=== PATIENT | female | born 1945 | race Caucasian/White ===

== ENCOUNTER → 2022-06-29 13:13 | Outpatient (BNVA) | payer MEDICARE, SELFPAY | PROVIDERS: PCP Internal Medicine; Visit Provider Hospitalist | DX: R91.8 Other nonspecific abnormal finding of lung field (principal); R10.9 Unspecified abdominal pain; R16.1 Splenomegaly, not elsewhere classified; R05.3 Chronic cough | CPT/HCPCS: 99202 ==

== ENCOUNTER 2023-04-26 08:30 | Outpatient (REF) | payer MEDICARE, SELFPAY ==
--- NOTE | ~2023-04-26 | CT_ITS ---
EXAMINATION: CT CHEST WITHOUT CONTRAST CLINICAL INFORMATION: Nonspecific abnormal finding lung field. COMPARISON: None available. TECHNIQUE: Multidetector volumetric CT imaging of the chest was done. Axial MIP volume rendering provided. Sagittal and coronal reformatted images were obtained. This CT examination was performed using dose optimization techniques as appropriate, variously including the following: *Automated exposure control *Adjustment of mA and/or kV according to patient size (this includes techniques or standardized protocols for targeted exams where dose is matched to indication/reason for exam; i.e. extremities or head) *Use of iterative reconstruction technique DLP: 66 mGy-cm FINDINGS: CITY MANAGER: Hyperinflated lungs. Mild kyphosis. LUNGS: Evaluation of the trachea limited due to motion artifact. Trachea and bronchi are patent. Hyperinflation with mild centrilobular emphysema. Mild bilateral lower lobe and lingular atelectasis. Right middle lobe granuloma. No consolidations, groundglass opacities versus lung nodules. MEDIASTINUM: Unremarkable thyroid. No pathologic lymphadenopathy. Nonenlarged heart. No pericardial effusion. Nonaneurysmal aorta with atherosclerotic calcifications. Nonenlarged pulmonary arteries. CORONARY ARTERY CALCIFICATION: Mild. PLEURA: There is no pleural effusion. No pleural mass or thickening. AXILLA: No lymphadenopathy. UPPER ABDOMEN: Unremarkable. OSSEOUS STRUCTURES: Kyphosis. CT/CT chest wo IV con IMPRESSION: Mild centrilobular emphysema and mild scattered atelectasis. No acute intrathoracic or upper abdominal pathology. Fleischner guidelines were followed.
== END 2023-04-26 08:31 | disposition home or self-care (01) ==
LOC: HO.CT 08:30
PROVIDERS: PCP Internal Medicine; Visit Provider Hospitalist
DX: R91.8 Other nonspecific abnormal finding of lung field (principal)
CPT/HCPCS: 71250

== ENCOUNTER 2023-05-14 10:22 | Outpatient (AMB) | payer MEDICARE, SELFPAY ==
[2023-05-14 10:35] VITALS: BP 124/70; PULSE 82; O2SAT 99; BMI 18.7
--- NOTE | 2023-05-14 10:35 | A.OFFVIS_ITS ---
Intake Vital Signs 05/14/23 10:35 Height 5 ft Weight 96 lb BMI 18.7 BP 124/70 Blood Pressure Location Rt brachial Position Sitting Pulse 82 Pulse Source Pulse Oximeter Pulse Oximetry (%) 99 Oxygen Delivery Method Room Air Intake Visit Reasons: COPD Allergies acetaminophen [From Tylenol] Allergy (Severe, Verified 05/14/23 10:38) Hallucinations meperidine [From Demerol] Allergy (Severe, Verified 05/14/23 10:38) Difficulty Breathing oxycodone Allergy (Severe, Verified 05/14/23 10:38) Hallucinations Penicillins Allergy (Severe, Verified 05/14/23 10:38) Hives HPI HPI Comments History of Present Illness Details The patient is a 77 year woman with a known history of vocal cord dysfunction. Part of workup including a CT scan of the chest. She had a CT scan back in April 2022. This was done at [facility]. I personally reviewed the report closely with the patient. It did mention that she had 2 new pulmonary nodules when compared to 2012. One of the nodules is only 3 mm in size in the right upper lobe and is ground glassy in nature. The largest nodule measures 6 mm and is in the right lower lobe. This nodule is also described as ground glassy. Does not appear to have a solid component which is reassuring the patient also has some evidence of mild lymphadenopathy primarily in the hilum and also some coronary vascular calcifications. Based on the abnormal findings she was referred to Pulmonary. On further questioning the patient states that she was followed by ENT for many years for the vocal cord dysfunction. Sometimes she would lose her voice altogether. She did work closely with speech pathology and now has been discharged. She continues to work on the exercises by herself. She has does know exactly why she lost her voice. The patient does complaint of a dry cough. The cough tends to be worse when she lays flat. Moderate severity. Nonproductive in nature. Denies any chest tightness or wheezing. She does complaint of nasal congestion postnasal drip. Therefore will go ahead and treated for a upper airway cough syndrome. In addition to this the patient does complaint of left upper quadrant pain. When she takes deep breath it tends to hurt more. She is on comfortable and she is concerned about what it could be. She is wondering if it could be her lungs or if it is related to her chronic pancreatic disease. On my examination I could palpate an organ in the left upper lobe quadrant suggesting splenomegaly. Will go ahead and request an ultrasound to assess that area further. She does have a GI doctor that she also follows up closely with specially with her pancreatic insufficiency. 05/14/2023 the patient is here for a pul monary follow-up visit. The patient overall has been doing well. She still complains of a dry persistent cough. Moderate severity. She does take an Jose inhibitor but she is taking that for many years. She did not have any significant improvement after the addition of nasal therapy. We did review her CT scan of the chest. No significant abnormalities. She has small subcentimeter pulmonary nodules that have not changed. Was mention some emphysema but I do not appreciate significant emphysema at this time. She is hyperinflated she does have some lordosis is some back issues. Therefore, will go ahead and start her on benzonatate for cough. This started not covered she can try good Rx card. If she finds it helpful will have to find a way for her to get them at a reasonable cost. She the other option is to get off the JOSE-inhibitor but the patient is very comfortable taking this medication that is worse for her for many years, the room social although not changed [facility], [facility] Medical History (Updated 06/29/22 @ 18:40 by Uri Polk MD) Chronic cough Pulmonary nodules Abdominal pain (Updated 06/29/22 @ 13:27 by Nikki Templeton Kane) Patient Tobacco Use Status: Former Tobacco user Tobacco use type: Cigarette Years Smoked: 10 Years Review of Systems Const Denies excessive sweating and Denies fever(s) Eyes Denies change in vision ENT Reports change in voice, Reports nasal congestion, Reports nasal discharge and Reports post nasal drip Card Denies chest pain and Denies dyspnea on exertion Resp Denies chest congestion, Reports cough, Denies dyspnea on exertion and Denies wheezing GI Reports abdominal pain and Reports dyspepsia Musc Reports myalgias Skin/Breast Denies rash Neuro Reports no additional complaints Endo Denies excessive sweating Dagoberto/Lymph Reports easy bruising Aller/Immun Denies wheezing Physical Exam Vital Signs: Last Vital Signs Pulse 82 05/14/23 10:35 BP 124/70 05/14/23 10:35 Pulse Ox 99 05/14/23 10:35 Oxygen Delivery Method Room Air 05/14/23 10:35 BMI result Body Mass Index 18.7 Const General: comfortable HEENT General nose exam: Abnormal mucous membranes and turbinates present boggy Throat: Yes postnasal drainage Eyes General: appearance normal, both eyes and all related structures Neck Neck: Yes supple Chest Chest palpation & inspection: normal inspection of the chest Resp Effort & Inspection: normal respiratory effort Auscultation: clear to auscultation bilaterally Cardio Rate: regular rate Rhythm: regular rhythm Heart sounds: S1 normal heart sound present and S2 normal heart sound present GI Palpation (GI): Tenderness to palpation present (GI) in the LUQ and Splenomegaly present Auscultation: normal bowel sounds General: Yes no CVA tenderness Back/Spine/Pelvis Back: no CVA tenderness Skin General skin exam: no rashes or lesions noted Extrem General: Yes no clubbing, cyanosis or edema Results Reviewed Results Reviewed: [address] [address] [address] Scan Report Signed Patient: Yoly Hopkins MR#: [id number] : 1945 Acct:[id number] Age/Sex: 77 / F ADM Date: 04/26/23 Loc: HO.CT Attending Dr: Uri Polk MD Ordering Physician: Uri Polk MD Date of Service: 04/26/23 Procedure(s): CT chest wo IV con Accession Number(s): [id number] cc: Rhett Zepeda; Uri Polk MD~ EXAMINATION: CT CHEST WITHOUT CONTRAST CLINICAL INFORMATION: Nonspecific abnormal finding lung field. COMPARISON: None available. TECHNIQUE: Multidetector volumetric CT imaging of the chest was done. Axial MIP volume rendering provided. Sagittal and coronal reformatted images were obtained. This CT examination was performed using dose optimization techniques as appropriate, variously including the following: *Automated exposure control *Adjustment of mA and/or kV according to patient size (this includes techniques or standardized protocols for targeted exams where dose is matched to indication/reason for exam; i.e. extremities or head) *Use of iterative reconstruction technique DLP: 66 mGy-cm FINDINGS: DISTRICT OR DISTRICT OFFICE DIRECTOR: Hyperinflated lungs. Mild kyphosis. LUNGS: Evaluation of the trachea limited due to motion artifact. Trachea and bronchi are patent. Hyperinflation with mild centrilobular emphysema. Mild bilateral lower lobe and lingular atelectasis. Right middle lobe granuloma. No consolidations, groundglass opacities versus lung nodules. MEDIASTINUM: Unremarkable thyroid. No pathologic lymphadenopathy. Nonenlarged heart. No pericardial effusion. Nonaneurysmal aorta with atherosclerotic calcifications. Nonenlarged pulmonary arteries. CORONARY ARTERY CALCIFICATION: Mild. PLEURA: There is no pleural effusion. No pleural mass or thickening. AXILLA: No lymphadenopathy. UPPER ABDOMEN: Unremarkable. OSSEOUS STRUCTURES: Kyphosis. CT/CT chest wo IV con IMPRESSION: Mild centrilobular emphysema and mild scattered atelectasis. No acute intrathoracic or upper abdominal pathology. Fleischner guidelines were followed. Dictated By: Trice Hahn MD Signed By: <Electronically signed by Trice Hahn MD in OV> 05/02/23 1216 DD/ 0850 TD/TT: Public Space Attendant: Assessment & Plan Assessment & Plan (1) Pulmonary nodules: Code(s): R91.8 - Other nonspecific abnormal finding of lung field (2) Chronic cough: Comment: upper airway cough syndrome Code(s): R05.3 - Chronic cough Plan continue fluticasone nasal spray AM start benzonates as needed for cough start STACY as needed consider switching JOSE to ARB No need for f/u CT chest F/u Fall 2023 Medications: New benzonatate 200 mg PO BID 30 days PRN 30 caps 0RF cough benzonatate 200 mg PO BID 30 days PRN 30 caps 0RF cough levalbuterol tartrate 45 mcg/actuation (Xopenex HFA) 2 puffs inhalation Q6H 30 days PRN 15 grams 11RF shortness of breath or wheezing J45.909 - Unspecified asthma, uncomplicated Coding Level of Care Code Est Pt Level 4 (33580) Diagnoses Pulmonary nodules R91.8 Chronic cough R05.3 Time Spent (min) 16
== END 2023-05-14 11:20 | disposition home or self-care (01) ==
PROVIDERS: PCP Internal Medicine; Visit Provider Hospitalist
DX: R91.8 Other nonspecific abnormal finding of lung field (principal); R05.3 Chronic cough
CPT/HCPCS: 99214

== ENCOUNTER → 2023-05-14 10:22 | Outpatient (BNVA) | payer MEDICARE, SELFPAY | PROVIDERS: PCP Internal Medicine; Visit Provider Hospitalist | DX: R91.8 Other nonspecific abnormal finding of lung field (principal); R05.3 Chronic cough | CPT/HCPCS: 99212 ==